=== PATIENT | female | born 1990 | race Caucasian/White ===

== ENCOUNTER 2016-06-06 12:26 | Emergency (ER) | payer OTHER ==
[~2016-06-06] VITALS: Ht 154.9 cm; Wt 70.3 kg
[~2016-06-06 12:26] MED LIST: BACTRIM DS 8001 TAB PO; ESCITALOPRAM20 MG PO; FERRALET 901 TAB PO; IBUPROFEN800 MG PO; KEFLEX500 MG PO; PERCOCET 325 MG1 TA2 PO; TAMIFLU75 MG PO
[2016-06-06 12:35] VITALS: BP 117/80
--- NOTE | 2016-06-06 13:17 | ED GI/GU/ABDOMINAL COMPLAINT ---
History of Present Illness General Chief Complaint: General Adult Stated Complaint: "IM NOT FEELING WELL, LIKE VOMITING" Source: patient Exam Limitations: no limitations Vital Signs & Intake/Output Vital Signs & Intake/Output Vital Signs Date Time Temp Pulse Resp B/P Pulse O2 O2 Flow FiO2 Ox Delivery Rate 06/06 1235 98.8 116 20 117/80 99 Room Air Allergies Coded Allergies: NO KNOWN ALLERGIES (09/20/14) Reconcile Medications Cephalexin (Keflex) 500 MG CAPSULE 1 TAB PO TID Dicyclomine Hydrochloride (Bentyl) 10 MG CAPSULE 1 CAP PO TID PRN Escitalopram Oxalate 20 MG TABLET 1 TAB PO DAILY MENTAL HEALTH (Reported) Ibuprofen 800 MG TABLET 800 MG PO Q6P PRN PAIN SCALE 4-6 IRON CARB,GL/FA/B12/C/DOCUSATE (Ferralet 90 Tablet) 90 MG-1 MG-12 MCG-120 MG-50 MG TABLET 1 TAB PO DAILY SUPPLEMENT (Reported) Ondansetron (Zofran Odt) 4 MG TAB.RAPDIS 1 TAB SL TID PRN NAUSEA OXYCODONE HCL/ACETAMINOPHEN (Percocet 5-325 MG Tablet) 325 MG/5 MG TAB 1 TAB PO Q4P PRN PAIN SCALE 7-8 Sulfamethoxazole/Trimethopri (Bactrim Ds 800 MG-160 MG) 1 TAB TAB 1 TAB PO BID . Triage Note: PT C/O ABDOMINAL PAIN WITH N/V SINCE 429. PT DENIES URINARY S&S. Triage Nurses Notes Reviewed? yes ? N Is pt currently ? No HPI: This patient is a 25-year-old female who presented to the emergency department today for evaluation of nausea and vomiting. The patient reported that she was woken from sleep at approximately 4:30 this morning with 8 out of 10 up her abdominal pain and nausea. She reported that she has vomited approximately 5 times today. She reported that the pain is cramping. The pain is nonradiating and constant. She has not been able to eat or drink anything today. No blood in the vomitus. The patient denied any fevers, chills, or chest pain. She reported she feels like it's difficult to breathe when the pain comes on. She reported that the pain comes in waves. Her last menstrual period was last week and normal. She reported some mild lower back pain. The patient denied any urinary burning, urgency, frequency, blood in the urine, or any diarrhea. She reported that both of her small children have been sick recently. (ITZ BROWN PA-C) Past History Travel History Traveled to [place] past 21 day No Medical History Any Pertinent Medical History? see below for history Neurological: NONE EENT: NONE Cardiovascular: NONE Respiratory: NONE Gastrointestinal: NONE Hepatic: NONE Renal: NONE Musculoskeletal: NONE Psychiatric: NONE Endocrine: NONE Blood Disorders: anemia Cancer(s): NONE FUSING MACHINE TENDER/Reproductive: NONE Surgical History Surgical History: Psychosocial History What is your primary language Afghan Tobacco Use: Never used ETOH Use: occasional use Illicit Drug Use: denies illicit drug use Family History Hx Contributory? No (ITZ BROWN PA-C) Review of Systems Review of Systems Constitutional: Reports: no symptoms. EENTM: Reports: no symptoms. Respiratory: Reports: see HPI. Cardiovascular: Reports: no symptoms. GI: Reports: see HPI. Genitourinary: Reports: no symptoms. Musculoskeletal: Reports: see HPI. Skin: Reports: no symptoms. Neurological/Psychological: Reports: no symptoms. All Other Systems: Reviewed and Negative (ITZ BROWN PA-C) Physical Exam Physical Exam Gastrointestinal: normal bowel sounds, soft, no organomegaly, NONDISTENDED. tENDERNESS TO PALPATION IN THE LEFT UPPER QUADRANT WITH NO REBOUND OR GUARDING. nEGATIVE Melendrez SIGN. nO mCbURNEY'S POINT TENDERNESS. nO MASSES APPRECIATED Comments: Well-developed well-nourished person in no acute distress HEENT: Normal EENT exam, moist mucous membranes Pupils equally round and reactive to light. Neck: Supple, no lymphadenopathy Back: Normal inspection. Normal gait. Left-sided CVA tenderness. No midline tenderness Cardiovascular: Regular rate and rhythm with no murmurs Respiratory: No respiratory distress. Breath sounds clear to auscultation bilaterally with no wheezes, rales, rhonchi Extremity: Normal and equal pulses Neuro: Alert oriented x3, cranial nerves II through XII grossly intact. Skin: No appreciable rash on exposed skin, skin is warm and dry. Psych: Mood and affect is normal Core Measures ACS in differential dx? No Severe Sepsis Present: No Septic Shock Present: No (ITZ BROWN PA-C) Progress Differential Diagnosis: AMI, appendicitis, biliary colic, bowel obstruction, colon cancer, cholecystitis, diverticulitis, ectopic , endometritis, gastritis, hepatitis, ischemic bowel, inflamm bowel dis, intrauterine , kidney stone, ovarian cyst, ovarian torsion, pancreatitis, PID/cervicitis, PUD/ GERD, perforated viscous, threatened AB, UTI/pyelo Plan of Care: Orders Procedure Date/time Status Add-on Test (ER Only) 06/06 1447 Active HUMAN BETA HCG SCREEN 06/06 1306 Complete C-REACTIVE PROTEIN 06/06 1306 Complete RAPID VIRAL INFLUENZA A 06/06 1259 Complete URINE 06/06 1259 Complete URINALYSIS 06/06 1259 Complete LIPASE 06/06 1259 Complete HIGH SENSITIVITY CRP 06/06 1259 Complete ETHANOL 06/06 1259 Complete DIRECT BILIRUBIN 06/06 1259 Complete COMPREHENSIVE METABOLIC PANEL 06/06 1259 Complete CBC WITHOUT DIFFERENTIAL 06/06 1259 Complete AMYLASE 06/06 1259 Complete Laboratory Tests 06/06/16 1516: Urine Color YEL, Urine Clarity CLEAR, Urine pH 7.0, Ur Specific [place] 1.015, Urine Protein NEG, Urine Ketones 15 H, Urine Nitrite NEG, Urine Bilirubin NEG, Urine Urobilinogen 0.2, Ur Leukocyte Esterase NEG, Ur Microscopic EXAM NOT REQUIRED, Urine Hemoglobin NEG, Urine Glucose NEG, Urine Test NEGATIVE 06/06/16 1306: Anion Gap 12, Estimated GFR > 60, BUN/Creatinine Ratio 20.0, Glucose 106 H, Calcium 9.4, Total Bilirubin 0.5, Direct Bilirubin 0.3, AST 15, ALT 25, Alkaline Phosphatase 78, C-Reactive Prot, Quant 2.2 H, C-React Prot High Sens > 15.0 H, Total Protein 7.6, Albumin 4.3, Globulin 3.3, Albumin/Globulin Ratio 1.3, Amylase 34, Lipase 56, Total Beta HCG NEGATIVE, CBC w Diff NO MAN DIFF REQ, RBC 5.02, MCV 82.6, MCH 28.1, RDW 15.0 H, MPV 9.9, Gran % 92.4 H, Lymphocytes % 4.7 L, Monocytes % 2.9, Eosinophils % 0, Basophils % 0 L, Absolute Granulocytes 9.2 H, Absolute Lymphocytes 0.5 L, Absolute Monocytes 0.3, Absolute Eosinophils 0, Absolute Basophils 0, PUBS MCHC 34.0, Serum Alcohol < 10.0 Microbiology 06/06 1259 NASOPHARYN: Influenza Virus A & B Rapid Smear - COMP Diagnostic Imaging: Viewed by Me: CT Scan. Discussed w/RAD: CT Scan. Radiology Impression: PATIENT: JAMEE MCKEON PRESENT AGE: 25 PATIENT ACCOUNT NO: [id number] : 88 LOCATION: [facility] ORDERING PHYSICIAN: ITZ BROWN PA-C SERVICE DATE: 06/06/16 EXAM TYPE: CAT - CT ABD & PELVIS W IV CONTRAST EXAMINATION: CT ABDOMEN AND PELVIS WITH CONTRAST CLINICAL INFORMATION: Nausea and vomiting. High CRP COMPARISON: None TECHNIQUE: Multidetector volumetric imaging was performed of the abdomen and pelvis before and after the IV administration of 94 mL of Optiray 320 intravenous contrast. Sagittal and coronal reformatted images were obtained on the technologist's workstation. DLP: 379.69 mGy-cm FINDINGS: LUNG BASES: The visualized lung bases are unremarkable. LIVER, GALLBLADDER, AND BILIARY TREE: The liver is normal in size, shape, and attenuation. No focal hepatic lesion or biliary ductal dilatation is present. The gallbladder is unremarkable with no evidence of radiopaque gallstones, gallbladder wall thickening, or obvious pericholecystic inflammatory changes. PANCREAS: Unremarkable. SPLEEN: Unremarkable. ADRENAL GLANDS: Unremarkable. KIDNEYS AND URETERS: The kidneys are normal in size, shape, and attenuation. No hydronephrosis, hydroureter, or calculi seen. No perinephric stranding. BLADDER: Unremarkable. GASTROINTESTINAL TRACT: The small and large bowel are unremarkable. The appendix is unremarkable. ABDOMINAL WALL: No significant hernia is appreciated. LYMPH NODES: Normal. VASCULAR: Unremarkable. PELVIC VISCERA: Unremarkable. OSSEOUS STRUCTURES: Unremarkable. IMPRESSION: No significant abnormality. DICTATED BY: DONAVAN BURKS MD DATE/TIME DICTATED:06/06/161540 FURNACE UNLOADER:REUBEN DATE/TIME TRANSCRIBED:06/06/161540 CONFIDENTIAL, DO NOT COPY WITHOUT APPROPRIATE AUTHORIZATION. <Electronically signed in Other Vendor System> SIGNED BY: DONAVAN BURKS MD 06/06/16 2254 Initial ED EKG: none (KEVIN PRINCE,ITZ) Departure Departure Disposition: HOME OR SELF CARE Condition: Stable Clinical Impression Primary Impression: Abdominal pain Qualifiers: Abdominal location: generalized Qualified Code: R10.84 - Generalized abdominal pain Referrals: MITCH NEW DO (PCP/Family) Additional Instructions: Takes Zofran as prescribed for nausea. Take Bentyl as prescribed for abdominal spasms. Please rest and be sure to stay hydrated. Follow-up with your primary care physician. Return for any worsening symptoms or concerns. Departure Forms: Customer Survey General Discharge Information Prescriptions: Current Visit Scripts Ondansetron (Zofran Odt) 1 TAB SL TID PRN NAUSEA #10 TAB Dicyclomine Hydrochloride (Bentyl) 1 CAP PO TID PRN #12 CAP (ITZ BROWN PA-C) PA/IN SERVICE EDUCATION TEACHER Co-Sign Statement Statement: ED Attending supervision documentation- [] I saw and evaluated the patient. I have also reviewed all the pertinent lab results and diagnostic results. I agree with the findings and the plan of care as documented in the PA's/IN SERVICE EDUCATION TEACHER's documentation. [X] I have reviewed the ED Record and agree with the PA's/IN SERVICE EDUCATION TEACHER's documentation. [] Additions or exceptions (if any) to the PAs/IN SERVICE EDUCATION TEACHER's note and plan are summarized below: [] (JUAN M JALLOH,RAMÓN)
[2016-06-06 13:21] LABS: ABSOLUTE BASOPHIL COUNT 0 /CUMM (0.0-0.2); ABSOLUTE EOSINOPHIL COUNT 0 /CUMM (0.0-0.7); ABSOLUTE GRANULOCYTE CT 9.2 /CUMM (1.4-6.5); ABSOLUTE LYMPH COUNT 0.5 /CUMM (1.2-3.4); ABSOLUTE MONOCYTE COUNT 0.3 /CUMM (0.10-0.60); BASOPHIL % 0 % (0.0-2.0); EOSINOPHIL % 0 % (0-5); HEMATOCRIT 41.4 % (37-47); MEAN CORPUSCULAR HGB 28.1 PG (27.0-31.0); MEAN CORPUSCULAR VOLUME 82.6 FL (81.0-99.0); MEAN PLATELET VOLUME 9.9 FL (7.4-10.4); PLATELET COUNT 234 /CUMM (130-400); RED BLOOD CELL CT 5.02 /CUMM (4.20-5.40); WHITE BLOOD CELL COUNT 9.9 /CUMM (4.8-10.8)
[2016-06-06 13:39] LABS: GRANULOCYTE % 92.4 % (42.2-75.2)
--- NOTE | 2016-06-06 15:53 | CT SCAN REPORT ---
EXAMINATION: CT ABDOMEN AND PELVIS WITH CONTRAST CLINICAL INFORMATION: Nausea and vomiting. High CRP COMPARISON: None TECHNIQUE: Multidetector volumetric imaging was performed of the abdomen and pelvis before and after the IV administration of 94 mL of Optiray 320 intravenous contrast. Sagittal and coronal reformatted images were obtained on the technologist's workstation. DLP: 379.69 mGy-cm FINDINGS: LUNG BASES: The visualized lung bases are unremarkable. LIVER, GALLBLADDER, AND BILIARY TREE: The liver is normal in size, shape, and attenuation. No focal hepatic lesion or biliary ductal dilatation is present. The gallbladder is unremarkable with no evidence of radiopaque gallstones, gallbladder wall thickening, or obvious pericholecystic inflammatory changes. PANCREAS: Unremarkable. SPLEEN: Unremarkable. ADRENAL GLANDS: Unremarkable. KIDNEYS AND URETERS: The kidneys are normal in size, shape, and attenuation. No hydronephrosis, hydroureter, or calculi seen. No perinephric stranding. BLADDER: Unremarkable. GASTROINTESTINAL TRACT: The small and large bowel are unremarkable. The appendix is unremarkable. ABDOMINAL WALL: No significant hernia is appreciated. LYMPH NODES: Normal. VASCULAR: Unremarkable. PELVIC VISCERA: Unremarkable. OSSEOUS STRUCTURES: Unremarkable. IMPRESSION: No significant abnormality.
[2016-06-06] MEDS ORDERED: ZOFRAN ODT4 M1 SL (16:21)
[2016-06-06] MEDS ORDERED: BENTYL10 M1 PO (16:21)
== END 2016-06-06 16:35 ==
LOC: ERH 12:26
PROVIDERS: Physician Assistant
DX: R10.12 Left upper quadrant pain (principal)
CPT/HCPCS: 74177; 81003; 81025; 87804; 87804-59; 96374; G0480; J2405

== ENCOUNTER 2017-06-19 21:39 | Emergency (ER) | payer OTHER ==
[~2017-06-19] VITALS: Ht 154.9 cm; Wt 76.7 kg
[~2017-06-19 21:39] MED LIST changes: +BENTYL10 M1 PO; +ZOFRAN ODT4 M1 SL
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
[2017-06-19] MEDS ORDERED: ESCITALOPRAM OX20 MG PO (22:00)
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
[2017-06-19] MEDS ORDERED: IBUPROFEN800 M1 PO (23:03)
[2017-06-19] MEDS ORDERED: ROBAXIN-750750 M1 PO (23:03)
[2017-06-19 23:10] VITALS: BP 136/78
== END 2017-06-19 23:16 ==
LOC: ERH 21:39
DX: M25.562 Pain in left knee (principal); R51 Headache; V43.52XA Car driver injured in collision with other type car in traffic accident, initial encounter
CPT/HCPCS: 73562-LT; 81025